=== PATIENT | female | born 1975 | race African-American/Black ===

== ENCOUNTER 2020-03-23 22:14 | Emergency (ER) | payer OTHER ==
[~2020-03-23] VITALS: Ht 160 cm; Wt 79.4 kg
[2020-03-23 22:15] VITALS: BP 166/92
--- NOTE | 2020-03-23 22:43 | NUR ---
PATIENT CAME TO ER BED 9 C/O LEFT ARM PAIN. PATIENT STATES THAT SHE HAS FELT THIS BEFORE. AAOX4. NO SOB. BREATHING EVENLY AND UNLABORED ON ROOM AIR.
[2020-03-23] MEDS ORDERED: IBUPROFEN 600 MG TABLET PO ONE ×2 (22:47→23:00)
--- NOTE | 2020-03-23 22:54 | NUR ---
PATIENT PROVIDED PRESCRIPTIONS.
--- NOTE | 2020-03-23 22:54 | NUR ---
Patient discharged to home in stable condition. Written and verbal after care instructions given. Patient verbalizes understanding of instruction.
--- NOTE | 2020-03-23 23:22 | NUR ---
Patient is ambulatory with a steady gait
== END 2020-03-23 23:24 | disposition home or self-care (01) ==
LOC: ER 22:15
DX: F41.9 Anxiety disorder, unspecified (principal); M79.622 Pain in left upper arm; I10 Essential (primary) hypertension; E78.5 Hyperlipidemia, unspecified; J45.909 Unspecified asthma, uncomplicated; Z98.890 Other specified postprocedural states; Z86.73 Personal history of transient ischemic attack (TIA), and cerebral infarction without residual deficits